=== PATIENT | female | born 1955 | race Two or more races ===

== ENCOUNTER 2018-10-13 12:35 | Inpatient (IN) | payer MEDICARE, OTHER ==
[2018-10-13] MEDS: SOD CHLORIDE 0.9% 1,000 ML IV ×2 (08:00→16:43)
[2018-10-13 13:13] LABS: ADD MAN DIFF? NO
[2018-10-13 13:16] LABS: BASOPHIL # 0.1 10^3/ul (0.0-0.1); BASOPHILS % 0.7 % (0.0-2.0); EOSINOPHILS # 0.1 10^3/ul (0.0-0.5); EOSINOPHILS % 0.7 % (0.0-7.0); HEMATOCRIT 38.7 % (37.0-47.0); HEMOGLOBIN 12.7 g/dl (12.0-16.0); LYMPHOCYTES # 2.8 10^3/ul (0.8-2.9); LYMPHOCYTES % 31.1 % (15.0-51.0); MEAN CORPUSCULAR HEMOGLOBIN 28.2 pg (29.0-33.0); MEAN CORPUSCULAR HGB CONC 32.8 g/dl (32.0-37.0); MEAN CORPUSCULAR VOLUME 85.8 fl (82.0-101.0); MEAN PLATELET VOLUME 9.5 fl (7.4-10.4); MONOCYTE # 0.7 10^3/ul (0.3-0.9); MONOCYTES % 7.6 % (0.0-11.0); NEUTROPHIL # 5.4 10^3/ul (1.6-7.5); NEUTROPHILS % 59.6 % (39.0-77.0); PLATELET COUNT 273 10^3/UL (140-415); RED BLOOD COUNT 4.51 10^6/ul (4.20-5.40); RED CELL DISTRIBUTION WIDTH 12.6 % (11.5-14.5)
[2018-10-13 13:34] LABS: ANION GAP 8 (5-13); BLOOD UREA NITROGEN 13 mg/dl (7-20); CARBON DIOXIDE 25 mmol/L (21-31); CHLORIDE 105 mmol/L (97-110); GLUCOSE 90 mg/dl (70-220); INR 0.89; POTASSIUM 3.8 mmol/L (3.5-5.1); PROTIME 12.2 Sec (11.9-14.9); SODIUM 138 mmol/L (135-144)
[2018-10-13 13:35] LABS: CALCIUM 9.5 mg/dl (8.4-10.2); Estimated GFR > 60 mL/min (>60); PARTIAL THROMBOPLASTIN TIME 27.1 Sec (23.0-35.0)
[2018-10-13 13:49] LABS: CREATININE 0.36 mg/dl (0.44-1.00)
[2018-10-13] MEDS ORDERED: LIDOCAINE 1% (MDV) 20 ML INJ ×2 (15:55→15:58)
[2018-10-13] MEDS ORDERED: IODIXANOL LOCM 100 ML BTL ×2 (15:55→15:58)
[2018-10-13] MEDS ORDERED: HEPARIN 1000 UNITS/ML 10 ML INJ (15:58)
[2018-10-13] MEDS ORDERED: NITROGLYCERIN (IC) 100 MCG/ML INJ (15:59)
[2018-10-13] MEDS ORDERED: FENTAnyl 50 MCG/ML VIAL (15:59)
[2018-10-13] MEDS ORDERED: VERAPAMIL 5 MG INJ (15:59)
[2018-10-13] MEDS ORDERED: MIDAZOLAM 1 MG/ML 2 ML INJ (15:59)
[2018-10-13] MEDS ORDERED: AL HYDROX/MG HYDROX/SIMETH 30 ML CUP PO (17:00)
[2018-10-13] MEDS ORDERED: ONDANSETRON 4 MG INJ IV (17:00)
[2018-10-13] MEDS: ASPIRIN 81 MG TAB PO (17:00)
[2018-10-13] MEDS ORDERED: ACETAMINOPHEN 325 MG TAB PO (17:00)
[2018-10-13] MEDS: LISINOPRIL 20 MG TAB PO (17:30)
[2018-10-13] MEDS: ATORVASTATIN 40 MG TAB PO (21:29)
[2018-10-14] MEDS: LEVOTHYROXINE 50 MCG TAB PO (06:28)
[2018-10-14] MEDS: LISINOPRIL 10 MG TAB PO (08:17)
[2018-10-14] MEDS: ASPIRIN 81 MG TAB PO (08:17)
[2018-10-14 08:59] LABS: ALANINE AMINOTRANSFERASE 21 IU/L (13-69); ALBUMIN/GLOBULIN RATIO 1.53; ALKALINE PHOSPHATASE 80 IU/L (42-121); ANION GAP 9 (5-13); ASPARTATE AMINO TRANSFERASE 22 IU/L (15-46); BILIRUBIN,INDIRECT 0.2 mg/dl (0-1.1); BILIRUBIN,TOTAL 0.2 mg/dl (0.2-1.3); BLOOD UREA NITROGEN 14 mg/dl (7-20); CARBON DIOXIDE 24 mmol/L (21-31); CHLORIDE 109 mmol/L (97-110); CHOLESTEROL 159 mg/dl (100-200); CREATININE 0.37 mg/dl (0.44-1.00); Estimated GFR > 60 mL/min (>60); GLUCOSE 103 mg/dl (70-220); HDL CHOLESTEROL 52 mg/dl (35-98); LDL CHOLESTEROL,CALCULATED 77 mg/dl; SODIUM 142 mmol/L (135-144); TOTAL PROTEIN 6.6 g/dl (6.1-8.1); TRIGLYCERIDES 150 mg/dl (0-149)
[2018-10-14 11:30] LABS: THYROID STIMULATING HORMONE 0.775 MIU/L (0.465-4.680)
== END 2018-10-14 13:17 | disposition left against medical advice (07) | DRG 287 ==
LOC: SDS 12:35 → TEL 17:08 → SDS 16:45 → REC 16:45 → TEL 17:08
PROC: B211YZZ Fluoroscopy of Multiple Coronary Arteries using Other Contrast (ICD-10-PCS; principal; 2018-10-13 14:30)
DX: I25.119 Atherosclerotic heart disease of native coronary artery with unspecified angina pectoris (principal); I10 Essential (primary) hypertension; E03.9 Hypothyroidism, unspecified; M81.0 Age-related osteoporosis without current pathological fracture
CPT/HCPCS: 71045; 80048; 80053; 80061; 84443; 85025; 85610; 85730; 93005; 93306; 93454; 93880